=== PATIENT | female | born 1935 | race Caucasian/White ===

== ENCOUNTER 2016-11-10 21:06 | Emergency (ER) | payer OTHER ==
--- NOTE | 2016-11-10 22:01 | ED GI/GU/ABDOMINAL COMPLAINT ---
History of Present Illness General Chief Complaint: Abdominal Pain/Flank Pain Stated Complaint: LOWER ABD. PAIN ALL DAY, NAUSEA Source: patient, family, old records Exam Limitations: no limitations Vital Signs & Intake/Output Vital Signs & Intake/Output Vital Signs Date Time Temp Pulse Resp B/P B/P Pulse O2 O2 Flow FiO2 Mean Ox Delivery Rate 11/10 2116 101 20 204/102 96 Room Air ED Intake and Output 11/11 0000 11/10 1200 Intake Total Output Total Balance Patient 160 lb Weight Allergies Coded Allergies: No Known Allergies (11/10/16) Triage Note: PER PT ABD PAIN TO RLQ SINCE THIS AM NORMAL BM TODAY, NO NAUSEA OR VOMITING NO FEVER. Triage Nurses Notes Reviewed? yes ? N Is pt currently ? No HPI: Patient presents with right lower quadrant pain that started earlier this morning. The pain was gradual onset. Patient denies any vomiting but she does have intermittent nausea.. There is no constipation or diarrhea. Patient is anorexic. She describes the pain as a hurt. There is no radiation. The pain worsens with bumps in the car on the ride over here. She rates the pain as 8 out of 10. There is no dysuria. There is no hematuria. Past History Travel History Traveled to [place] past 21 day No Medical History Any Pertinent Medical History? see below for history Neurological: STROKE EENT: NONE Cardiovascular: hypertension, CHOL Respiratory: NONE Gastrointestinal: NONE Hepatic: NONE Renal: NONE Musculoskeletal: NONE Psychiatric: NONE Endocrine: NONE Blood Disorders: NONE Surgical History Surgical History: hysterectomy Psychosocial History What is your primary language Italian Tobacco Use: Never used ETOH Use: denies use Illicit Drug Use: denies illicit drug use Family History Hx Contributory? No Review of Systems Review of Systems Constitutional: Reports: no symptoms. EENTM: Reports: no symptoms. Respiratory: Reports: no symptoms. Cardiovascular: Reports: no symptoms. GI: Reports: see HPI, abdominal pain, nausea. Genitourinary: Reports: no symptoms. Musculoskeletal: Reports: no symptoms. Skin: Reports: no symptoms. Neurological/Psychological: Reports: no symptoms. Hematologic/Endocrine: Reports: no symptoms. Immunologic/Allergic: Reports: no symptoms. All Other Systems: Reviewed and Negative Physical Exam Physical Exam General Appearance: well developed/nourished, alert, awake, anxious, moderate distress Head: atraumatic, normal appearance Eyes: Bilateral: PERRL, EOMI. Ears, Nose, Throat, Mouth: hearing grossly normal, DRY MUCOSA Neck: normal inspection, supple, full range of motion Respiratory: normal breath sounds, chest non-tender, no respiratory distress, lungs clear Cardiovascular: regular rate/rhythm, normal peripheral pulses Gastrointestinal: normal bowel sounds, soft, no organomegaly, tenderness (RLQ), NO REBOUND OR GUARDING Back: normal inspection, normal range of motion, NO CVA TENDERNESS Extremities: normal range of motion Neurologic/Psych: no motor/sensory deficits, awake, alert, oriented x 3, normal mood/affect Skin: intact, normal color, warm/dry Core Measures ACS in differential dx? No Severe Sepsis Present: No Septic Shock Present: No Progress Differential Diagnosis: AAA, appendicitis, diverticulitis, ischemic bowel, inflamm bowel dis, kidney stone, pancreatitis, SBO, UTI/pyelo Plan of Care: Orders Procedure Date/time Status PARTIAL THROMBOPLASTIN TIME 11/10 2199 Complete PROTHROMBIN TIME 11/10 2199 Complete URINALYSIS 11/10 2126 Active LIPASE 11/10 2126 Complete COMPREHENSIVE METABOLIC PANEL 11/10 2126 Complete CBC WITHOUT DIFFERENTIAL 11/10 2126 Complete AMYLASE 11/10 2126 Complete Laboratory Tests 11/10/162216: Anion Gap 14, Estimated GFR > 60, BUN/Creatinine Ratio 36.3 H, Glucose 115 H, Calcium 9.2, Total Bilirubin 0.6, AST 24, ALT 26, Alkaline Phosphatase 85, Total Protein 7.4, Albumin 4.4, Globulin 3.0, Albumin/Globulin Ratio 1.5, Amylase 57, Lipase 40, PT 38.8 H, INR 3.74 H, APTT 45 H, CBC w Diff NO MAN DIFF REQ, RBC 4.94, MCV 82.6, MCH 27.5, RDW 14.9 H, MPV 7.5, Gran % 81.1 H, Lymphocytes % 10.7 L, Monocytes % 6.3, Eosinophils % 1.4, Basophils % 0.5, Absolute Granulocytes 7.3 H, Absolute Lymphocytes 1.0 L, Absolute Monocytes 0.6, Absolute Eosinophils 0.1, Absolute Basophils 0, PUBS MCHC 33.3 Diagnostic Imaging: Viewed by Me: CT Scan. Discussed w/RAD: CT Scan. Radiology Impression: PATIENT: CARIDAD ZAMORA PRESENT AGE: 81 PATIENT ACCOUNT NO: [id number] : 37 LOCATION: [facility] ORDERING PHYSICIAN: ROJELIO PALMA MD SERVICE DATE: 11/10/16 EXAM TYPE: CAT - CT ABD & PELVIS W IV CONTRAST EXAMINATION: CT ABDOMEN AND PELVIS WITH CONTRAST CLINICAL INFORMATION: Right lower quadrant pain. Concern for appendicitis. COMPARISON: None TECHNIQUE: Multidetector volumetric imaging was performed of the abdomen and pelvis before and after the IV administration of 95 mL of Optiray 320 intravenous contrast. Sagittal and coronal reformatted images were obtained on the technologist's workstation. DLP: 647.73 mGy-cm FINDINGS: LUNG BASES: Elevated right diaphragm. Large hiatal hernia. LIVER, GALLBLADDER, AND BILIARY TREE: The Small hypodensity inferior right lobe of liver, image 115 (3) too small to characterize. Possible hepatic cyst. No intrahepatic bile duct dilatation. Gallstones within gallbladder. PANCREAS: Unremarkable. SPLEEN: Unremarkable. ADRENAL GLANDS: Unremarkable. KIDNEYS AND URETERS: Hypodensity in the parapelvic area bilaterally likely due to both parapelvic cysts and extrarenal pelvis. No dilatation of ureter. No renal or ureteral calculus. BLADDER: Unremarkable. GASTROINTESTINAL TRACT: The appendix is normal. The terminal ileum is entrapped in a spigelian hernia, axial image 50 (2). This does not cause obstruction of bowel. No bowel wall thickening or edema. 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 Moderate to large-volume of stool in the cecum and ascending colon with smaller volume in transverse colon almost no stool seen in the left colon and sigmoid. ABDOMINAL WALL: Spigelian hernia within entrapped portion of the ascending colon., Axial image 50 (2). LYMPH NODES: Normal. VASCULAR: Atherosclerotic vascular wall calcifications of aorta and iliac vessels without aneurysm. PELVIC VISCERA: Uterus is absent. No adnexal abnormality. OSSEOUS STRUCTURES: Degenerative change of the spine with disc height narrowing and facet joint arthrosis most pronounced at the lower lumbar spine. IMPRESSION: 1. Normal appendix. 2. 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 No bowel obstruction or bowel wall thickening or edema. DICTATED BY: NAZANIN SPRAGUE MD DATE/TIME DICTATED:11/10/162331 SEED ANALYST:BAKARI DATE/TIME TRANSCRIBED:05/24/17 / 2332 CONFIDENTIAL, DO NOT COPY WITHOUT APPROPRIATE AUTHORIZATION. <Electronically signed in Other Vendor System> SIGNED BY: NAZANIN SPRAGUE MD 11/10/16 9393 Initial ED EKG: none Departure Departure Disposition: HOME OR SELF CARE Condition: Stable Clinical Impression Primary Impression: Lower abdominal pain, unspecified Referrals: KENNEY CUEVA,HENRY Anaya (PCP/Family) Additional Instructions: RETURN IF SYMPTOMS WORSEN OR FOR ANY CONCERNS Departure Forms: Customer Survey General Discharge Information
[2016-11-10 22:34] LABS: ABSOLUTE BASOPHIL COUNT 0 /CUMM (0.0-0.2); ABSOLUTE EOSINOPHIL COUNT 0.1 /CUMM (0.0-0.7); ABSOLUTE GRANULOCYTE CT 7.3 /CUMM (1.4-6.5); ABSOLUTE MONOCYTE COUNT 0.6 /CUMM (0.10-0.60); BASOPHIL % 0.5 % (0.0-2.0); EOSINOPHIL % 1.4 % (0-5); GRANULOCYTE % 81.1 % (42.2-75.2); HEMATOCRIT 40.8 % (37-47); MEAN CORPUSCULAR HGB 27.5 PG (27.0-31.0); MEAN CORPUSCULAR HGB CONC 33.3 G/DL (33.0-37.0); MEAN CORPUSCULAR VOLUME 82.6 FL (81.0-99.0); MEAN PLATELET VOLUME 7.5 FL (7.4-10.4); PLATELET COUNT 259 /CUMM (130-400); RBC DISTRIBUTION WIDTH 14.9 % (11.5-14.5); RED BLOOD CELL CT 4.94 /CUMM (4.20-5.40); WHITE BLOOD CELL COUNT 8.9 /CUMM (4.8-10.8)
[2016-11-10 22:41] LABS: PT 38.8 SEC (9.4-12.5); PTT 45 SEC (25-37)
--- NOTE | 2016-11-10 23:52 | CT SCAN REPORT ---
EXAMINATION: CT ABDOMEN AND PELVIS WITH CONTRAST CLINICAL INFORMATION: Right lower quadrant pain. Concern for appendicitis. COMPARISON: None TECHNIQUE: Multidetector volumetric imaging was performed of the abdomen and pelvis before and after the IV administration of 95 mL of Optiray 320 intravenous contrast. Sagittal and coronal reformatted images were obtained on the technologist's workstation. DLP: 647.73 mGy-cm FINDINGS: LUNG BASES: Elevated right diaphragm. Large hiatal hernia. LIVER, GALLBLADDER, AND BILIARY TREE: The Small hypodensity inferior right lobe of liver, image 115 (3) too small to characterize. Possible hepatic cyst. No intrahepatic bile duct dilatation. Gallstones within gallbladder. PANCREAS: Unremarkable. SPLEEN: Unremarkable. ADRENAL GLANDS: Unremarkable. KIDNEYS AND URETERS: Hypodensity in the parapelvic area bilaterally likely due to both parapelvic cysts and extrarenal pelvis. No dilatation of ureter. No renal or ureteral calculus. BLADDER: Unremarkable. GASTROINTESTINAL TRACT: The appendix is normal. The terminal ileum is entrapped in a spigelian hernia, axial image 50 (2). This does not cause obstruction of bowel. No bowel wall thickening or edema. 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 Moderate to large-volume of stool in the cecum and ascending colon with smaller volume in transverse colon almost no stool seen in the left colon and sigmoid. ABDOMINAL WALL: Spigelian hernia within entrapped portion of the ascending colon., Axial image 50 (2). LYMPH NODES: Normal. VASCULAR: Atherosclerotic vascular wall calcifications of aorta and iliac vessels without aneurysm. PELVIC VISCERA: Uterus is absent. No adnexal abnormality. OSSEOUS STRUCTURES: Degenerative change of the spine with disc height narrowing and facet joint arthrosis most pronounced at the lower lumbar spine. IMPRESSION: 1. Normal appendix. 2. 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 No bowel obstruction or bowel wall thickening or edema.
[2016-11-11 00:27] VITALS: BP 184/96
== END 2016-11-11 00:27 ==
LOC: ERH 21:06
PROVIDERS: Emergency Medicine
DX: R10.31 Right lower quadrant pain (principal); R11.0 Nausea; I10 Essential (primary) hypertension
CPT/HCPCS: 74177; 96361; 96374; 96375; J2405